=== PATIENT | male | born 1980 | race Caucasian/White ===

== ENCOUNTER 2021-04-23 20:04 | Emergency (ER) | payer OTHER, BC, SELFPAY ==
[2021-04-23 20:23] VITALS: BP 154/82; PULSE 107; RESP 18; TEMP 36.8; O2SAT 97; BMI 34.7
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
[2021-04-23] MEDS: morphine 4 mg/mL SDV 1 mL IM (21:57)
[2021-04-23 22:04] VITALS: BP 148/88; PULSE 103; RESP 22; O2SAT 99
[2021-04-23] MEDS: ondansetron 4 MG Tablet PO (22:27)
[2021-04-23 22:29] VITALS: BP 148/88; PULSE 101; RESP 22; O2SAT 100
[2021-04-23 23:05] VITALS: RESP 18
[2021-04-23] MEDS: HYDROmorphone 1 mg/mL INJ 1 mL IM (23:05)
== END 2021-04-24 00:11 | disposition home or self-care (01) ==
PROVIDERS: Emergency Provider Physician Assistant
DX: S42.291A Other displaced fracture of upper end of right humerus, initial encounter for closed fracture (principal); S00.83XA Contusion of other part of head, initial encounter; V86.65XA Passenger of 3- or 4- wheeled all-terrain vehicle (ATV) injured in nontraffic accident, initial encounter
CPT/HCPCS: 70450; 70486; 72125; 73030; 73060; 96372; 99283; J1170; J2270; Q0162